=== PATIENT | female | born 1955 | race Caucasian/White ===

== ENCOUNTER 2017-05-02 14:55 | Observation (INO) | payer OTHER ==
[2017-05-02 16:33] LABS: Hematocrit 36 % (35-47); Hemoglobin 12.3 g/dl (12.0-16.0); Mean Corpuscular HGB Conc 34 g/dl (31-36); Mean Corpuscular Hemoglobin 30 pg (27-31); Mean Corpuscular Volume 88 fL (80-97); Mean Platelet Volume 7 um3 (7.4-10.4); Red Cell Distribution Width 13 % (10.5-15); White Blood Count 10.2 10^3/ul (3.5-10.8)
[2017-05-02 16:47] LABS: C Reactive Protein 23.63 mg/L (< 5.00); Calcium 9.2 mg/dL (8.6-10.3); EGFR African American 124.6 (>60); EGFR Non-African American 96.9 (>60); Globulin 3.3 g/dL (2-4); Potassium 4.1 mmol/L (3.5-5.0); Total Bilirubin 0.3 mg/dL (0.2-1.0); Total Protein 7.3 g/dL (6.4-8.9)
--- NOTE | 2017-05-02 17:35 | RAD ---
HISTORY: Right lower extremity pain and edema. TECHNIQUE: Multiple transverse and longitudinal ultrasound images were obtained of the veins of the right lower extremity using grayscale, color Doppler, and spectral Doppler imaging with and without compression and with augmentation. FINDINGS: VEINS: There is occlusive thrombus in the distal femoral vein extending into the popliteal vein. There is no compressibility or color flow documented. No flow is seen in the infrapopliteal veins. The common femoral vein and deep femoral vein are compressible throughout their course, with normal flow on color Doppler imaging and normal response to augmentation on spectral Doppler imaging. SOFT TISSUES: Grossly normal. No large popliteal fossa cyst was identified. IMPRESSION: Occlusive deep vein thrombus in the right distal femoral vein and popliteal vein.
[2017-05-02] MEDS ORDERED: Iodixanol* (CONTRAST) 320 MG/ML 100 ML SDV IV ONE (17:59)
[2017-05-02] MEDS ORDERED: Rivaroxaban TAB(*) 10 MG PO ONE (18:45)
--- NOTE | 2017-05-02 19:05 | RAD ---
INDICATION: Shortness of breath and d-dimer and right foot swelling after a flight. COMPARISON: None TECHNIQUE: Axial source images were acquired following the administration of 81 mL of Visipaque [address] angiographic technique. Coronal and sagittal reconstructed images were constructed and reviewed. FINDINGS: There are partially occlusive filling defects involving the right mainstem pulmonary artery extending into the lobar branches of the right lung including the intermediate segment of the right pulmonary artery. To a lesser extent there are nonocclusive thrombi in the segmental branches of the left lower lobe as well as the distal subsegmental branches of the left upper lobe. There are no focal infiltrates or effusions. There are no pulmonary parenchymal masses. The heart is normal in size. There is no evidence of pericardial effusion. There is no evidence of aortic aneurysm or dissection. There is no mediastinal, hilar, or axillary lymphadenopathy. Degenerative changes of the thoracic spine includes loss of intervertebral disc height and anterior marginal osteophyte formation. Limited views of the upper abdomen show no abnormalities. IMPRESSION: Bilateral pulmonary emboli more severely affecting the right than the left as described above. Findings were reported to Dr. Cope over the telephone at 1900 hours on May 02, 2017.
[2017-05-02] MEDS ORDERED: Acetaminophen TAB* 325 MG PO PRN (19:19)
[2017-05-02] MEDS ORDERED: Dextrose 50% Syringe 50 ML* 25 GM/50 ML SYRINGE IV PUSH PRN (19:19)
[2017-05-02] MEDS ORDERED: Ondansetron INJ* 2 MG/ML VIAL IV PRN (19:19)
[2017-05-02] MEDS ORDERED: diPHENhydraMINE PO* 25 MG PO PRN (19:20)
[2017-05-02] MEDS ORDERED: Rivaroxaban TAB(*) 15 MG PO ONE ×2 (19:20→19:21)
--- NOTE | 2017-05-02 20:49 | HP ---
CC: Dr. Kit Fournier, phone number [phone] * HISTORY AND PHYSICAL: DATE OF ADMISSION: 05/02/17 PRIMARY CARE PROVIDER: Dr. Fournier from [facility]; his number is [phone]. ATTENDING PHYSICIAN WHILE IN THE HOSPITAL: Dr. Juan Alberto Zamudio * (report dictated by Zion Roy NP). CHIEF COMPLAINT: 1. Shortness of breath. 2. Right leg swelling. HISTORY OF PRESENT ILLNESS: Ms. Meadows is a 62-year-old female patient with a history of hypothyroidism; diabetes, diet controlled; arthritis, who comes into our ER today stating that she has been recently in November started on Premarin and also in the last several weeks has been traveling. She has been in [place], she has been in [place]. She just traveled up to [place] to visit her family and she noticed that she had been having worsening leg swelling over the last couple of weeks to her lower extremity on the right side with some redness and erythema. The calf is getting big and painful. She was concerned. Two weeks ago, she noticed that she was having worsening shortness of breath. She thought it was because she was in [place], from the altitude; however, the shortness of breath persisted, so she decided to come into the ER today to have the leg evaluated and ultimately found to have DVT in the leg and bilateral PE. She denies having any chest pain. She states she does not feel short of breath now. She denies feeling lightheaded or dizzy like she is going to faint. She denies having any abdominal pain or any nausea. No recent fevers , cough, chills. No dysuria or any frequency. She was found to have these PE and DVT. Because of this, we were asked to evaluate for admission. PAST MEDICAL HISTORY: Significant for: 1. Hypothyroidism. 2. Diabetes. 3. Arthritis. PAST SURGICAL HISTORY: 1. She has had . 2. She has had multiple laparoscopies. 3. Tubal ligation. 4. Hysterectomy. MEDICATIONS: The home meds according to the list that we were able to obtain include: 1. Vitamin D 400 units p.o. daily. 2. Aspirin 650 mg p.o. daily. 3. Diphenhydramine 25 mg p.o. daily. 4. Acyclovir 400 mg p.o. four times a day as needed. 5. Synthroid 50 mcg p.o. daily. 6. Premarin 0.3 mg p.o. daily. ALLERGIES TO MEDICATIONS: Include no known drug allergies. FAMILY HISTORY: The patient's mother is an alcoholic. The father had a history of kidney cancer. SOCIAL HISTORY: She does not smoke. Does not drink. Surrogate decision maker is her daughter, Angelita. REVIEW OF SYSTEMS: There is no documented fever. She denied having any significant weight change. There was no double vision. She denies having any ear discharge. There is no rhinorrhea. No sore throat, no thyroid enlargement. She denied having any chest pain. There is dyspnea on exertion. There is no abdominal pain. No nausea, vomiting. No dysuria, no frequency. No seizure, no loss of consciousness. No pruritus, no skin ulcerations. Review of 14 systems was completed, all others negative. PHYSICAL EXAMINATION GENERAL: At this time, Ms. Meadows is an 62-year-old female patient. She is sitting in the ER stretcher. She does not appear to be in any acute distress. VITAL SIGNS: Blood pressure 100/70, pulse 84, respirations 18, O2 sat 96% on room air, temperature 97.9. HEENT: Head: Atraumatic, normocephalic. Eyes: EOMs are intact. Sclerae anicteric and not pale. Throat: Oral mucosa appears to be moist. No oropharyngeal erythema. NECK: Supple. LUNGS: Clear to auscultation bilaterally. No wheezes, rales, or rhonchi. HEART: Sounds S1, S2. Regular rate and rhythm. No murmurs, rubs, or gallops. ABDOMEN: Soft, flat, nontender. Bowel sounds present. EXTREMITIES: Pulses 2+ throughout. The right lower extremity actually was not painful or tender, it was warm to touch and was larger than the left lower extremity. NEUROLOGIC: She is awake, alert, oriented x3. Tongue is midline. Import/Export Agent are equal. She had no gross focal deficits. SKIN: Intact. DIAGNOSTIC STUDIES/LAB DATA: WBC of 10.2, RBC of 4.10, hemoglobin 12.3, hematocrit 36, platelet count of 358. INR 0.85, D-dimer greater than 1050. Sodium 137, potassium 4.1, chloride of 102, bicarb 27, BUN 13, creatinine 0.62, glucose 114. Uric acid is 7. Calcium 9.2. Total bili 0.3, AST 18, ALT 16, alk phos 57. CRP at 23. Albumin of 4. She did have chest CTA which showed bilateral pulmonary emboli, more severely affected in the right than the left as described above. Venous Doppler study did show occlusive deep vein thrombus in the right distal femoral vein and popliteal vein. Old medical records reviewed. ASSESSMENT AND PLAN: Ms. Meadows is a 62-year-old female patient coming into our ER today with complaints of shortness of breath and leg pain. On evaluation, was found to have pulmonary emboli bilaterally and deep venous thrombosis. She will be admitted under observation status for: 1. Pulmonary embolism and deep venous thrombosis. At this point, I suspect the offending culprit was the fact that she was taking Premarin recently and also has been traveling on airplanes in the last several weeks which certainly may increase her risk for pulmonary embolism and deep venous thrombosis and the Premarin. My plan would be go ahead and stop the offending agent. Start her on Xarelto b.i.d. Get an echo. Place her on telemetry. Continue to follow. She seems to be tolerating this well. She is not hypoxic. She is not tachycardic. Blood pressure is stable and she is not complaining of any chest pain. We will continue to follow closely. 2. Diabetes. I will put her on lispro sliding scale. 3. Hypothyroidism. Continue Synthroid. 4. DVT prophylaxis. She will be on therapeutic Xarelto. 5. Code status. Full code. 6. Fluids, electrolytes, and nutrition. Heart-healthy diet. TIME SPENT: On the admission 60 minutes; greater than half the time was spent face- to-face with the patient obtaining my history and physical, other half of the time spent going over the plan of care with the patient and implementing plan of care. I did discuss plan of care with my attending, Dr. Juan Alberto Zamudio; he is in agreement. ZION ROY NP [id number]/[facility] #: [id number] LEIF
[2017-05-02 23:52] LABS: Urine Bilirubin Negative (Negative); Urine Glucose Negative (Negative); Urine Nitrite Negative (Negative)
[2017-05-03] MEDS ORDERED: Levothyroxine TAB* 50 MCG TAB PO SCH (06:00)
[2017-05-03 06:29] LABS: Hemoglobin 11.4 g/dl (12.0-16.0)
[2017-05-03 06:31] LABS: Hematocrit 34 % (35-47); Mean Corpuscular HGB Conc 33 g/dl (31-36); Mean Corpuscular Hemoglobin 30 pg (27-31); Mean Corpuscular Volume 89 fL (80-97); Mean Platelet Volume 7 um3 (7.4-10.4); Red Blood Count 3.84 10^6/ul (4.0-5.4); Red Cell Distribution Width 13 % (10.5-15); White Blood Count 7.5 10^3/ul (3.5-10.8)
[2017-05-03 06:47] LABS: BUN/Creatinine Ratio 16.1 (8-20); Calcium 8.8 mg/dL (8.6-10.3); Comments Flag Yes; EGFR African American 140.2 (>60); Potassium 3.7 mmol/L (3.5-5.0)
[2017-05-03] MEDS: Insulin LISPRO* 1 UNITS UNIT SUBCUT SCH ×2 (07:31→12:01)
--- NOTE | 2017-05-03 08:46 | ED ---
Fermín Gallagher Angela, scribed for Eris Cope MD on 05/02/17 at 1600 . Lower Extremity - HPI Summary HPI Summary: This pt is a 62 y/o female presenting to [facility] c/o right lower extremity pain and swelling. Pt reports she has been flying around a little bit. She has traveled from [place] to [place]. Pt notes her SOB began in [place]. She then flew from [place] to [place] (approx. 3 hours) and from [place] to [place] (approx. 1 hour). PMHx includes diabetes (which she has been controlling with diet), sepsis (1 year ago for a perforated colon). She denies HTN or high cholesterol. Pt states recently getting a steroid shot on her right hip. - History of Current Complaint Chief Complaint: EDShortnessOfBreath Stated Complaint: SOB/DIFF BREATHING/FOOT SWELLING/ Hx Obtained From: Patient Mechanism Of Injury: Other - no injury Onset of Pain: Hours Onset/Duration: Still Present Severity Currently: Moderate Pain Intensity: 6 Pain Scale Used: 0-10 Numeric Timing: Constant Location: Is Discrete @ - right lower extremity Associated Signs And Symptoms: Positive: Swelling, Redness Able to Bear Weight: Yes - Allergies/Home Medications Allergies/Adverse Reactions: Allergies Allergy/AdvReac Type Severity Reaction Status Date / Time No Known Drug Allergy Allergy Unknown Verified 05/02/17 22:39 Reaction Details Home Medications: Home Medications Acyclovir* [Zovirax 400 MG TAB*] 400 mg PO QID PRN 05/02/17 [History Confirmed 05/02/17] Aspirin TAB* [Aspirin 325 MG TAB*] 650 mg PO DAILY 05/02/17 [History Confirmed 05/02/17] Cholecalciferol TAB* [Vitamin D TAB*] 400 unit PO DAILY 05/02/17 [History Confirmed 05/02/17] Conjugated Estrogens TAB* [Premarin TAB*] 0.3 mg PO DAILY 05/02/17 [History Confirmed 05/02/17] Diphenhydramine HCl [Benadryl Allergy 25 MG CAP] 25 mg PO DAILY PRN 05/02/17 [ History Confirmed 05/02/17] Levothyroxine TAB* [Synthroid TAB*] 50 mcg PO DAILY 05/02/17 [History Confirmed 05/02/17] PMH/Surg Hx/FS Hx/Imm Hx Endocrine/Hematology History: Reports: Hx Diabetes Cardiovascular History: Denies: Hx Hypercholesterolemia, Hx Hypertension Infectious Disease History: No Infectious Disease History: Denies: Traveled Outside the [place] in Last 30 Days - Family History Known Family History: Positive: Diabetes - brother - Social History Alcohol Use: Rare Substance Use Type: Reports: None Hx Tobacco Use: No Smoking Status (MU): Never Smoked Tobacco Review of Systems Negative: Fever, Chills Eyes: Negative Negative: Chest Pain Positive: Shortness Of Breath Musculoskeletal: Other - RLE pain and swelling Skin: Other - RLE redness All Other Systems Reviewed And Are Negative: Yes Physical Exam - Summary Physical Exam Summary: VITAL SIGNS: Reviewed. GENERAL: Patient is a well-developed and nourished female who is lying comfortable in the stretcher. Patient is not in any acute respiratory distress. HEAD AND FACE: No signs of trauma. No ecchymosis, hematomas or skull depressions. No sinus tenderness. EYES: PERRLA, EOMI x 2, No injected conjunctiva, no nystagmus. EARS: Hearing grossly intact. Ear canals and tympanic membranes are within normal limits. MOUTH: Oropharynx within normal limits. NECK: Supple, trachea is midline, no adenopathy, no JVD, no carotid bruit, no c- spine tenderness, neck with full ROM. CHEST: Symmetric, no tenderness at palpation LUNGS: Clear to auscultation bilaterally. No wheezing or crackles. CVS: Regular rate and rhythm, S1 and S2 present, no murmurs or gallops appreciated. ABDOMEN: Soft, non-tender. No signs of distention. No rebound no guarding, and no masses palpated. Bowel sounds are normal. EXTREMITIES: FROM in all major joints, no cyanosis or clubbing. There is right lower extremity edema, and tenderness to palpation. NEURO: Alert and oriented x 3. No acute neurological deficits. Speech is normal and follows commands. SKIN: Dry and warm Triage Information Reviewed: Yes Vital Signs On Initial Exam: Initial Vitals Temp Pulse Resp BP Pulse Ox 97.9 F 81 22 161/93 99 05/02/17 15:13 05/02/17 15:13 05/02/17 15:13 05/02/17 15:13 05/02/17 15:13 Vital Signs Reviewed: Yes Diagnostics - Vital Signs Vital Signs Temp Pulse Resp BP Pulse Ox 05/02/17 15:13 97.9 F 81 22 161/93 99 - Laboratory Result Diagrams: 05/03/17 05:48 05/03/17 05:48 Lab Statement: Any lab studies that have been ordered have been reviewed, and results considered in the medical decision making process. - CT CTA chest/thorax CT Interpretation: Positive (See Comments) - IMPRESSION: Bilateral pulmonary emboli more severely affecting the right than the left as described above. ED physician has reviewed this radiology report and agrees. CT Interpretation Completed By: Radiologist - Pending official report from radiologist, please see [facility]. - EKG 1536 Cardiac Rate: NL EKG Rhythm: Sinus Rhythm - at 77 bpm EKG Interpretation: No ST elevation. Normal axis. - Additional Comments Diagnostic Additional Comments: Right lower extremity Dopple Study, per radiologist: IMPRESSION: Occlusive deep vein thrombus in the right distal femoral vein and popliteal vein. ED physician has reviewed this radiology report and agrees. Lower Extremity Course/Dx - Course Assessment/Plan: This pt is a 62 y/o female presenting to [facility] c/o right lower extremity pain and swelling. Pt reports she has been flying around a little bit. She has traveled from [place] to [place]. Pt notes her SOB began in [place]. She then flew from [place] to [place] (approx. 3 hours) and from [place] to [place] (approx. 1 hour). PMHx includes diabetes (which she has been controlling with diet), sepsis (1 year ago for a perforated colon). She denies HTN or high cholesterol. Pt states recently getting a steroid shot on her right hip. Blood work without significant abnormalities except for increased D-dimer > 1050. US of RLE shows occlusive deep vein thrombus in the right distal femoral vein and popliteal vein. CTA shows bilateral pulmonary emboli more severely affecting the right than the left as described above. The pt will be started on Xarelto, recommended by the hospitalist. I discussed the case with Dr. Cruz, and JERONIMO Leung who accepted the pt for admission. - Diagnoses Provider Diagnoses: DVT (deep venous thrombosis), Pulmonary emboli - Physician Notifications Discussed Care Of Patient With: Narciso Cruz Time Discussed With Above Provider: 18:45 Instructed by Provider To: Other - I discussed the pt's case with Dr. Cruz and JERONIMO Leung who has agreed to admit the pt. Discharge - Discharge Plan Condition: Stable Disposition: ADMITTED TO [facility] documentation as recorded by the Fermín salmeron Angela accurately reflects the service I personally performed and the decisions made by , Eris Cope MD.
[2017-05-03] MEDS ORDERED: Rivaroxaban TAB(*) 15 MG PO SCH (09:00)
--- NOTE | 2017-05-03 12:00 | ECHO ---
Patient: VENITA COFFMAN [facility] Rec#: [id number] : 1955 Date: 05/03/2017 Age: 62y Height: 165.1 cm / 65.0 in Weight: 99.79 kg / 219.9 lbs Sex: F BSA: 2.06 Room#: [facility] Admit Date#: 05/02/2017 Type: Inpatient Referring: Zion Roy NP Reading: Naima Beasley MD Manager [facility] Transthoracic Echocardiogram Indication: Bilateral Pulmonary Emboli BP: 149/79 HR: 84 Rhythm: NSR Findings History: Hypothyroid, DM, arthritis. Technical Comments: The study quality is fair. The study is technically limited due to patient body habitus. Completed at 1130. Left Ventricle: The left ventricular chamber size is normal. There is no left ventricular hypertrophy. Global left ventricular wall motion and contractility are within normal limits. The estimated ejection fraction is 55-60%. Abnormal left ventricular diastolic filling is observed, consistent with impaired relaxation. Left Atrium: The left atrium is mildly dilated. Right Ventricle: Moderator Band present. The right ventricle is mildly dilated. The right ventricular global systolic function is normal. Right Atrium: The right atrial cavity size is normal. Aortic Valve: The aortic valve is trileaflet. There is no evidence of aortic valve thickening. There is mild aortic regurgitation. There is no evidence of aortic stenosis. Mitral Valve: There is mitral annular calcification. The mitral valve leaflets are mildly thickened. There is trace to mild mitral regurgitation. There is no evidence of mitral stenosis. Tricuspid Valve: The tricuspid valve leaflets are normal. There is mild tricuspid regurgitation. The right ventricular systolic pressure is estimated at 22 mmHg. There is evidence that pulmonary hypertension may be underestimated. There is no tricuspid stenosis. Pulmonic Valve: The pulmonic valve appears normal. There is a trace pulmonic regurgitation. There is no pulmonic stenosis. Pericardium: There is no significant pericardial effusion. Aorta: There is no dilatation of the ascending aorta. There is no dilatation of the aortic arch. The aortic root is normal in size. Pulmonary Artery: The main pulmonary artery appears normal. Venous: The inferior vena cava appears normal in size. There is a greater than 50% respiratory change in the inferior vena cava dimension. Conclusions The left ventricular chamber size is normal. Global left ventricular wall motion and contractility are within normal limits. The estimated ejection fraction is 55-60%. Abnormal left ventricular diastolic filling is observed, consistent with impaired relaxation. The right ventricle is mildly enlarged and systolic function is normal. There is trace to mild mitral regurgitation. There is mild tricuspid regurgitation. The right ventricular systolic pressure is estimated at 22 mmHg. normal, may be underestimated. No prior echo to compare. Measurements Name Value Normal Range RVIDd (AP) 2D 2.6 cm (0.9 - 2.6) RVDdMajor (2D) 4.6 cm (2.2 - 4.4) RAd ISD 4CH 4.7 cm (3.4 - 4.9) RA (A4C)W 4.3 cm (2.9 - 4.6) IVSd (2D) 1 cm (0.6 - 1) LVPWd (2D) 0.9 cm (0.6 - 1) LVIDd (2D) 4.4 cm (3.6 - 5.4) LVIDs (2D) 3 cm - LV FS (2D) 32 % (25 - 45) Aortic Annulus 1.7 cm (1.4 - 2.6) Ao root diameter (2D) 2.9 cm (2.1 - 3.5) Ascending Ao 3.3 cm (2.1 - 3.4) Aortic arch 2.5 cm (1.8 - 3.4) LA dimension (AP) 2D 3.8 cm (2.3 - 3.8) LAd ISD 4CH 5.5 cm (2.9 - 5.3) LA ISD 4CH W 4.6 cm (2.5 - 4.5) Name Value Normal Range LA ESV SP 4CH (A/L) 52 ml - LA ESV SP 2CH (A/L) 80 ml - LA ESV BP (A/L) 66 ml - LA ESV BP (A/L) index 32.13 ml/m2 - LA ESV SP 4CH (MOD) 47 ml - LA ESV SP 2CH (MOD) 72 ml - Name Value Normal Range MV E-wave Vmax 0.8 m/sec - MV deceleration time 126.2 msec - MV A-wave Vmax 0.95 m/sec - MV E:A ratio 0.84 ratio - LV septal e' Vmax 0.08 m/sec - LV lateral e' Vmax 0.08 m/sec - LV E:e' septal ratio 10 ratio - LV E:e' lateral ratio 10 ratio - Name Value Normal Range AV Vmax 1.5 m/sec - AV VTI 34.11 cm - AV peak gradient 9.44 mmHg - AV mean gradient 6.09 mmHg - LVOT Vmax 1.3 m/sec - LVOT VTI 27.16 cm - LVOT peak gradient 6.3 mmHg - LVOT mean gradient 2.97 mmHg - ROBYN Vmax 0.86 m/sec - Name Value Normal Range TR Vmax 2.2 m/sec - TR peak gradient 19 mmHg - RAP 3 mmHg - RVSP 22 mmHg - IVC diameter 1.6 cm - Name Value Normal Range PV Vmax 0.76 m/sec - PV peak gradient 2.29 mmHg -
[2017-05-03 12:01] VITALS: BP 155/89
--- NOTE | 2017-05-03 13:13 | DCNOTE ---
Patient seen this morning. Reports feeling well, ambulated around the unit with no issues. HR max 107 when walking, otherwise in 70s-80s. Denies chest pain. On exam, RRR, s1 and s2 present, no m/g/r, lungs CTA B/L, no w/r/r, abd soft, NTND, BS+, RLE edema Echo shows no R heart strain. OK to discharge patient as HR normal, no O2 requirement and no RH strain. Discussed risks and benefits on DOAC vs coumadin and patient prefers DOAC. Will discharge on Xarelto 15 mg BID to complete 21 day course and then can take 20 mg daily. Should only need 3-6 months on AC as this seems provoked.
--- NOTE | 2017-05-04 00:23 | DS ---
DISCHARGE SUMMARY: DATE OF ADMISSION: 05/02/17 DATE OF DISCHARGE: 05/03/17 PRIMARY CARE PHYSICIAN: Dr. Kit Fournier, [place], [place] PRINCIPAL DISCHARGE DIAGNOSIS: Deep venous thrombosis/pulmonary embolism. SECONDARY DIAGNOSES: 1. Hypothyroidism. 2. Diet controlled diabetes. DISCHARGE MEDICATION REGIMEN: 1. Xarelto 15 mg by mouth 2 times daily x20 days, followed by 20 mg by mouth daily. 2. Synthroid 50 mcg by mouth daily. 3. Acyclovir 400 mg by mouth 4 times daily as needed for rash. 4. Benadryl 25 mg by mouth daily as needed for allergies. 5. Vitamin D 400 units by mouth daily. Medications discontinued this admission: Premarin tablets. STUDIES DONE DURING HOSPITALIZATION: Right lower extremity Doppler. Impression: Occlusive deep vein thrombus in the right distal femoral vein and popliteal vein. CTA of the chest shows bilateral pulmo nary emboli, more severely affecting the right than the left. Transthoracic echocardiogram, conclusi on: The left ventricular chamber size is normal. Global left ventricular wall motion and contractil ity within normal limits. The estimated ejection fraction is 55% to 60%. Abnormal left ventricular d iastolic filling is observed consistent with impaired relaxation. The right ventricle is mildly enla rged and systolic function is normal. There is trace to mild mitral regurgitation, mild tricuspid re gurgitation. Right ventricular systolic pressure is estimated at 22 mmHg, normal. No prior echo to maisha ompare to HISTORY OF PRESENT ILLNESS AND HOSPITAL SUMMARY: Please see the full history and physical by Zion simmons NP, for full details. Briefly, Ms. Albarran is a 62-year- old female with a past medical histo ry as above, who started 5 months ago on Premarin and has been traveling recently, presented to the [facility] with worsening right lower extremity pain and swelling as well as some shortness of breath. The patient has been on a number of flights recently, traveling around the country, most recently [facility] to [place] to visit her daughter. In the emergency department, the patient was found to have DVT on a Doppler in the right lower extremity as well as bilateral PEs. She was admitted to the hospital f or observation and was started on Xarelto. She was placed on telemetry. Throughout the entire hospi talization, the patient had no episodes of tachycardia aside from reaching the low 100s when she was ambulating around the unit. She was not hypoxic. Echocardiogram did not show any right heart strain . The patient states she felt well the next day and was very anxious for discharge. The pros and co ns of warfarin versus Xarelto were discussed with the patient and she opted to continue on Xarelto, w hich was started here in the hospital. She will likely only need 3 to 6 months of anticoagulation as this seemed to be a provoked thrombus and the patient can follow up with her PCP to determine the du ration of therapy. Her Premarin was stopped during the hospitalization and should be discontinued as an outpatient. TIME SPENT: Total time spent on this discharge was 45 minutes. This is a summary of the hospitalization, please see the full medical record for further details. [id number]/[facility] #: [id number]
== END 2017-05-03 14:08 | disposition home or self-care (01) ==
LOC: ED 14:55 → MEDTELE 19:17
PROVIDERS: ADMIT Hospitalist; ATTEND Hospitalist
DX: I82.411 Acute embolism and thrombosis of right femoral vein (principal); I26.99 Other pulmonary embolism without acute cor pulmonale; E03.9 Hypothyroidism, unspecified; E11.9 Type 2 diabetes mellitus without complications; Z79.82 Long term (current) use of aspirin; Z79.899 Other long term (current) drug therapy
CPT/HCPCS: 36415; 71275; 80048; 80053; 81003; 84550; 85025; 85379; 85610; 86140; 93005; 93306; 99284; A9270-GY; G0378; Q9967